=== PATIENT | male | born 1990 | race Caucasian/White ===

== ENCOUNTER 2016-09-28 13:59 | Observation (INO) | payer OTHER ==
[~2016-09-28] VITALS: Ht 172.7 cm; Wt 85.1 kg
[~2016-09-28 13:59] MED LIST: Z.0.NO CURRENT MEDS
[2016-09-28] MEDS ORDERED: ONDANSETRON HCL 4 MG/2 ML VIAL IVP ONE (14:00)
[2016-09-28] MEDS ORDERED: SODIUM CHLORIDE 0.9% FLUSH 5 ML FLUSH IVF PRN ×2 (14:00→18:00)
[2016-09-28] MEDS ORDERED: SODIUM CHLOR 0.9% 1000 ML INJ 1,000 ML IV SCH (14:00)
[2016-09-28] MEDS ORDERED: MORPHINE SULFATE 4 MG/ML INJ IV ONE (14:00)
[2016-09-28 14:01] VITALS: BP 141/72; PULSE 88; RESP 23; TEMP 98.4; O2SAT 100
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
[2016-09-28 14:20] VITALS: RESP 20; O2SAT 100
[2016-09-28 14:53] VITALS: BP 132/72; PULSE 99; RESP 20; O2SAT 99
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
[2016-09-28 15:22] LABS: AUTOMATED NEUTROPHIL # 14.7 TH/MM3 (1.8-7.7); BASOPHIL % 0.1 % (0.0-2.0); EOSINOPHIL % 0.1 % (0.0-4.0); HEMATOCRIT 41.3 % (39.0-51.0); HEMO FLAGS DIFF FINAL; LYMPH % 6.5 % (9.0-44.0); LYMPHOCYTE # 1.1 TH/MM3 (1.0-4.8); MEAN CELL VOLUME 81.8 FL (80.0-100.0); MEAN CORPUSCULAR HGB CONC 34.2 % (32.0-36.0); MONO % 6.5 % (0.0-8.0); NEUT % 86.8 % (16.0-70.0); PLATELET COUNT 203 TH/MM3 (150-450); RED BLOOD COUNT 5.05 MIL/MM3 (4.50-5.90); RED CELL DISTRIBUTION WIDTH 13.1 % (11.6-17.2)
[2016-09-28 15:39] LABS: APTT (PATIENT) 25.4 SEC (24.3-30.1); INTERNATIONAL NORMALIZED RATIO 1.1 RATIO
[2016-09-28 15:41] LABS: BICARBONATE 26.9 MEQ/L (21.0-32.0); POTASSIUM 3.8 MEQ/L (3.5-5.1)
[2016-09-28 16:08] VITALS: BP 132/60; PULSE 121; RESP 17; O2SAT 97
[2016-09-28] MEDS ORDERED: IOHEXOL 350 MG/ML 10 ML VIAL (for RAD DIAG) IV ONE (16:26)
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
[2016-09-28 16:34] VITALS: BP 127/59; PULSE 123; RESP 15; O2SAT 97
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
[2016-09-28] MEDS ORDERED: MORPHINE SULFATE 4 MG/ML INJ IV PUSH ONE (16:45)
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
[2016-09-28] MEDS ORDERED: ENALAPRILAT 1.25 MG/ML VIAL IV PRN (18:00)
[2016-09-28] MEDS ORDERED: ACETAMINOPHEN/HYDROcodone 325 MG/5 MG TAB PO PRN (18:00)
[2016-09-28] MEDS ORDERED: MAGNESIUM HYDROXIDE SUSP 30 ML CUP PO PRN (18:00)
[2016-09-28] MEDS ORDERED: HYDROmorphone HCL PF 1 MG/ML VIAL IVP PRN (18:00)
[2016-09-28] MEDS ORDERED: ONDANSETRON HCL 4 MG/2 ML VIAL IV PRN (18:00)
[2016-09-28] MEDS ORDERED: PANTOPRAZOLE SODIUM 40 MG VIAL IVP SCH (18:00)
[2016-09-28] MEDS: SODIUM CHLOR 0.9% 1000 ML INJ 1,000 ML IV SCH (18:10)
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
[2016-09-28] MEDS: ACETAMINOPHEN/HYDROcodone 325 MG/5 MG TAB PO PRN ×2 (18:49→23:59)
[2016-09-28 19:45] VITALS: BP 121/69; PULSE 103; RESP 16; TEMP 98.7; O2SAT 96
[2016-09-28] MEDS ORDERED: DOCUSATE SODIUM 100 MG CAP PO SCH (21:00)
[2016-09-29] VITALS: BP 119/68; PULSE 99; RESP 17; TEMP 98.8; O2SAT 95
[2016-09-29] MEDS: SODIUM CHLOR 0.9% 1000 ML INJ 1,000 ML IV SCH ×3 (05:34→20:51)
[2016-09-29] MEDS: ACETAMINOPHEN/HYDROcodone 325 MG/5 MG TAB PO PRN ×4 (05:34→23:38)
[2016-09-29 07:07] LABS: AUTOMATED NEUTROPHIL # 8.1 TH/MM3 (1.8-7.7); BASOPHIL % 0.3 % (0.0-2.0); EOSINOPHIL # 0.1 TH/MM3 (0-0.4); EOSINOPHIL % 0.6 % (0.0-4.0); HEMATOCRIT 37.9 % (39.0-51.0); HEMO FLAGS DIFF FINAL; LYMPH % 20.2 % (9.0-44.0); LYMPHOCYTE # 2.4 TH/MM3 (1.0-4.8); MEAN CELL VOLUME 82.8 FL (80.0-100.0); MEAN CORPUSCULAR HEMOGLOBIN 27.7 PG (27.0-34.0); MEAN CORPUSCULAR HGB CONC 33.4 % (32.0-36.0); NEUT % 68.9 % (16.0-70.0); PLATELET COUNT 203 TH/MM3 (150-450); RED BLOOD COUNT 4.58 MIL/MM3 (4.50-5.90); WHITE BLOOD COUNT 11.8 TH/MM3 (4.0-11.0)
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
[2016-09-29 08:00] VITALS: BP 121/66; PULSE 100; RESP 18; TEMP 98.6; O2SAT 95
[2016-09-29] MEDS: LIDOCAINE HCL 5% PATCH TD SCH (08:27)
[2016-09-29] MEDS: METHOCARBAMOL 500 MG TAB PO SCH ×3 (08:27→20:50)
[2016-09-29] MEDS: DOCUSATE SODIUM 50 MG/SENNA 8.6 MG TAB PO SCH ×2 (08:27→20:50)
[2016-09-29] MEDS: FAMOTIDINE 20 MG TAB PO SCH ×2 (08:27→20:50)
[2016-09-29 11:52] VITALS: BP 135/66; PULSE 93; RESP 18; TEMP 97.7; O2SAT 96
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
[2016-09-29 16:00] VITALS: BP 144/77; PULSE 97; RESP 18; TEMP 96.7; O2SAT 97
[2016-09-29 20:00] VITALS: BP 141/78; PULSE 113; RESP 17; TEMP 99.4; O2SAT 95
[2016-09-29] MEDS ORDERED: REMOVE OLD PATCH T-DERMAL SCH (21:00)
[2016-09-30] VITALS: BP 143/70; PULSE 107; RESP 16; TEMP 98.1; O2SAT 94
[2016-09-30] MEDS: METHOCARBAMOL 500 MG TAB PO SCH ×2 (05:39→13:52)
[2016-09-30] MEDS: ACETAMINOPHEN/HYDROcodone 325 MG/5 MG TAB PO PRN ×2 (05:39→11:39)
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
[2016-09-30 06:59] LABS: HEMATOCRIT 36.1 % (39.0-51.0); MEAN CELL VOLUME 82.3 FL (80.0-100.0); MEAN CORPUSCULAR HEMOGLOBIN 28.5 PG (27.0-34.0); MEAN CORPUSCULAR HGB CONC 34.6 % (32.0-36.0); PLATELET COUNT 176 TH/MM3 (150-450); RED BLOOD COUNT 4.38 MIL/MM3 (4.50-5.90); REVIEW FLAG FINAL; WHITE BLOOD COUNT 7.8 TH/MM3 (4.0-11.0)
[2016-09-30] MEDS: SODIUM CHLOR 0.9% 1000 ML INJ 1,000 ML IV SCH (07:04)
[2016-09-30 07:33] LABS: ANION GAP 6 MEQ/L (5-15); AST (GOT) 17 U/L (15-37); BICARBONATE 27.6 MEQ/L (21.0-32.0); BLOOD UREA NITROGEN 7 MG/DL (7-18); CHLORIDE 106 MEQ/L (98-107); GLOMERULAR FILTRATION RATE 114 ML/MIN (>89); POTASSIUM 3.5 MEQ/L (3.5-5.1); SODIUM (NA) 140 MEQ/L (136-145)
[2016-09-30 07:38] LABS: ALKALINE PHOSPHATASE 71 U/L (45-117); ALT (GPT) 35 U/L (12-78); TOTAL BILIRUBIN ADULT 0.6 MG/DL (0.2-1.0)
[2016-09-30 08:08] VITALS: BP 117/71; PULSE 80; RESP 16; TEMP 97.2; O2SAT 97
[2016-09-30] MEDS: DOCUSATE SODIUM 50 MG/SENNA 8.6 MG TAB PO SCH (08:33)
[2016-09-30] MEDS: FAMOTIDINE 20 MG TAB PO SCH (08:33)
[2016-09-30] MEDS: LIDOCAINE HCL 5% PATCH TD SCH (08:34)
[2016-09-30 12:00] VITALS: BP 116/66; PULSE 76; RESP 18; TEMP 97.1; O2SAT 98
[2016-09-30] MEDS ORDERED: ROBA500T PO (12:27)
[2016-09-30] MEDS ORDERED: NORC5TAB PO (12:27)
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
[2016-09-30] MEDS ORDERED: MILKSUS PO (13:12)
[2016-09-30] MEDS ORDERED: SENN1TAB PO (13:12)
[2016-09-30 13:39] VITALS: O2SAT 99
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
[2016-09-30] MEDS ORDERED: MAGNESIUM HYDROXIDE SUSP 30 ML CUP PO SCH (21:00)
== END 2016-09-30 14:55 | disposition home or self-care (01) ==
LOC: NEPC 13:59 → NEDA 16:50 → INTOOBSV 16:50 → N06B 19:34
PROVIDERS: ADMIT Surgery; ATTEND Surgery
DX: S22.42XA Multiple fractures of ribs, left side, initial encounter for closed fracture (principal); M25.552 Pain in left hip; V49.40XA Driver injured in collision with unspecified motor vehicles in traffic accident, initial encounter; S27.0XXA Traumatic pneumothorax, initial encounter; R00.0 Tachycardia, unspecified; S27.321A Contusion of lung, unilateral, initial encounter; R10.30 Lower abdominal pain, unspecified; M54.5 Low back pain; S40.012A Contusion of left shoulder, initial encounter
CPT/HCPCS: 70450; 71010; 71260; 72125; 72128; 72131; 72170; 73030; 73080; 74177; 80048; 80053; 85025; 85027; 85610; 85730; 86850; 86900; 86901; 94150; 94640; 94667; 96374; 96375; 97110; 97163; 97166; 97530; 99285; C9113; G0378; J1170; J2270; J2405; J7030; Q9967